=== PATIENT | male | born 1955 | race Hispanic/Latino ===

== ENCOUNTER 2020-01-16 21:42 | Emergency (ER) | payer OTHER ==
[2020-01-16 23:49] LABS: #Basophils 0.1 thou/uL (0.0-0.2); #Eosinphils 0.7 thou/uL (0.0-0.7); #Lymphocytes 1.3 thou/uL (1.20-3.40); #Monocytes 0.9 thou/uL (0.11-0.59); #Neutrophils 8.1 thou/uL (1.40-6.50); %Basophils 0.7 % (0.0-1.0); %Eosinophils 6.3 % (0.0-10.0); %Lymphocytes 11.6 % (21.0-51.0); %Neutrophils 73.5 % (42.0-75.0); Hemoglobin 10.1 g/dL (14.0-18.0); Mean Corpuscular HGB CONC 32.6 g/dL (32.0-36.0); Mean Corpuscular Hemoglobin 30.3 pg (27.0-31.0); Mean Corpuscular Volume 92.9 fL (78.0-98.0); Platelet Count 252 thou/uL (130-400); RBC Distribution Width 13.7 % (11.5-14.5); Red Blood Cell (RBC) Count 3.33 mill/uL (4.70-6.10); White Blood Cell (WBC) Count 11.1 thou/uL (4.8-10.8)
[2020-01-16] MEDS ORDERED: Mag-Al 1200 mg/1200 mg/30 ML UDCUP ONE (23:58)
[2020-01-16] MEDS ORDERED: Ondansetron ODT 8 MG TAB ONE (23:58)
[2020-01-16] MEDS ORDERED: Lidocaine Viscous Sol 2% 15 ml UD Cup ONE (23:58)
[2020-01-17 00:09] LABS: ALT (SGPT) Less than 7 U/L (8-55); AST (SGOT) 18 U/L (5-34); Albumin 2.7 g/dL (3.4-4.8); Alkaline Phosphatase 87 U/L (40-110); Anion Gap 14 mmol/L (10-20); BUN (Urea Nitrogen) 52 mg/dL (8.4-25.7); Bilirubin, Total 0.3 mg/dL (0.2-1.2); Calc. Creatinine Clearance 0 mL/min (70-130); Calcium 7.6 mg/dL (7.8-10.44); Carbon Dioxide 20 mmol/L (23-31); Chloride 110 mmol/L (98-107); Estimated GFR-MDRD 11; Glucose 90 mg/dL (80-115); Lipase 13 U/L (8-78); Protein, Total 5.7 g/dL (5.8-8.1); Sodium 141 mmol/L (136-145)
[2020-01-17 00:15] LABS: RBC/HPF 0-3 HPF (0-3); Squamous Epithelial 0-3 HPF (0-3)
[2020-01-17 00:17] LABS: Potassium 2.8 mmol/L (3.5-5.1)
[2020-01-17 00:23] LABS: Bacteria/HPF 1+ HPF (None Seen); Clarity Clear (Clear)
[2020-01-17 00:28] LABS: Bilirubin Negative (Negative); Blood, Urine Moderate (Negative); Glucose, Urine (Dipstick) 250 mg/dL (Negative); Leukocyte Negative (Negative); Nitrite Negative (Negative); Protein, Urine (Dipstick) > or equal to 300 mg/dL (Neg-Trace); Urobilinogen 0.2 mg/dL (Less than 2)
[2020-01-17] MEDS ORDERED: Potassium Chloride 20 MEQ TAB ONE (00:28)
== END 2020-01-17 02:39 ==
LOC: ERS 21:42
DX: R10.84 Generalized abdominal pain (principal); R11.2 Nausea with vomiting, unspecified; R19.7 Diarrhea, unspecified; E10.22 Type 1 diabetes mellitus with diabetic chronic kidney disease; E10.40 Type 1 diabetes mellitus with diabetic neuropathy, unspecified; I13.0 Hypertensive heart and chronic kidney disease with heart failure and stage 1 through stage 4 chronic kidney disease, or unspecified chronic kidney disease; I50.9 Heart failure, unspecified; N18.9 Chronic kidney disease, unspecified; Z79.899 Other long term (current) drug therapy; Z79.891 Long term (current) use of opiate analgesic; Z79.82 Long term (current) use of aspirin
CPT/HCPCS: 80053; 81003; 81015; 83690; 85025; 93005; Q0162

== ENCOUNTER 2020-02-01 13:27 | Inpatient (IN) | payer OTHER ==
[2020-02-01 14:16] LABS: #Eosinphils 0.4 thou/uL (0.0-0.7); #Lymphocytes 0.8 thou/uL (1.20-3.40); #Monocytes 0.6 thou/uL (0.11-0.59); #Neutrophils 10.4 thou/uL (1.40-6.50); %Basophils 0.3 % (0.0-1.0); %Lymphocytes 6.2 % (21.0-51.0); %Monocytes 4.6 % (0.0-10.0); Hemoglobin 9.5 g/dL (14.0-18.0); Mean Corpuscular Hemoglobin 30.2 pg (27.0-31.0); Mean Corpuscular Volume 91.7 fL (78.0-98.0); Mean Platelet Volume 7.1 fL (7.4-10.4); Platelet Count 335 thou/uL (130-400); RBC Distribution Width 13.5 % (11.5-14.5); Red Blood Cell (RBC) Count 3.15 mill/uL (4.70-6.10); White Blood Cell (WBC) Count 12.1 thou/uL (4.8-10.8)
[2020-02-01 14:26] LABS: Prothrombin Time 13.2 sec (12.0-14.7)
[2020-02-01 14:28] LABS: ALT (SGPT) Less than 7 U/L (8-55); AST (SGOT) 8 U/L (5-34); Albumin 2.3 g/dL (3.4-4.8); Alkaline Phosphatase 82 U/L (40-110); Anion Gap 12 mmol/L (10-20); BUN (Urea Nitrogen) 51 mg/dL (8.4-25.7); Bilirubin, Total 0.2 mg/dL (0.2-1.2); Calc. Creatinine Clearance 0 mL/min (70-130); Calcium 6.8 mg/dL (7.8-10.44); Carbon Dioxide 25 mmol/L (23-31); Chloride 107 mmol/L (98-107); Estimated GFR-MDRD 10; Globulin 2.6 g/dL (2.4-3.5); Glucose 251 mg/dL (80-115); Protein, Total 4.9 g/dL (5.8-8.1); Sodium 141 mmol/L (136-145)
[2020-02-01 14:34] LABS: Potassium 2.5 mmol/L (3.5-5.1)
[2020-02-01] MEDS ORDERED: Ondansetron PF 4 MG/2 ML Vial ONE (14:43)
[2020-02-01] MEDS ORDERED: Potassium Chloride 40 MEQ in Sodium Chloride 0.9% 250 ML 250 ML IVPB SCH (14:45)
[2020-02-01 15:21] LABS: CK (CPK) 108 U/L (30-200); Lipase 24 U/L (8-78)
--- NOTE | 2020-02-01 16:46 | CT ---
EXAM: ABDOMEN AND PELVIC CT SCAN WITHOUT IV CONTRAST: 02/01/20 HISTORY: Abdominal pain, prior bowel resection. FINDINGS: Three vessel coronary artery calcific disease. The liver, gallbladder, pancreas, and spleen are unrem arkable as visualized on this noncontrast study. Prominent renal artery calcifications with some chasity renal nonspecific fat stranding. No renal calculus or acute obstruction. Normal appearing appendix . The region of the rectum appears to have a thickened wall diffusely and circumferentially with some minimal perirectal nonspecific fat stranding. No overt adenopathy in the pelvis. No abscess or abnor mal fluid collection. There is some scattered subcutaneous fat stranding possibly related to some deg ree of anasarca. Multilevel lumbar spinal canal stenosis. IMPRESSION: 1. Abnormal wall thickening of the rectum with some perirectal nonspecific fat stranding. Possib ilities include that of rectal neoplasm and/or some acute nonspecific colitis involving the rectum re gion. 2. No CT evidence for acute appendicitis. 3. Other findings as above. POS: BONG
[2020-02-01] MEDS ORDERED: Dextrose 50% Abboject 50 ML SYRINGE SLOW IVP PRN (19:39)
[2020-02-01] MEDS ORDERED: HYDROcodone/Acetaminophen 5/325 mg Tablet PO PRN (19:39)
[2020-02-01] MEDS ORDERED: Ondansetron PF 4 MG/2 ML Vial IVP PRN (19:39)
[2020-02-01] MEDS ORDERED: Dextrose 5% in Water 1,000 ML IV PRN (19:39)
[2020-02-01] MEDS ORDERED: Acetaminophen 325 MG TAB PO PRN (19:39)
[2020-02-01 20:40] LABS: Iron Binding Capacity, Total 130 mcg/dL (261-462)
[2020-02-01] MEDS ORDERED: Potassium Chloride 20 MEQ/100 ML PREMIX BAG IVPB SCH (22:00)
[2020-02-01 22:51] LABS: Iron 45 ug/dL (65-175)
--- NOTE | 2020-02-01 22:55 | HP ---
PRIMARY CARE PHYSICIAN: None as the patient is from [facility]. SOURCE OF THE HISTORY: The patient, and history is reliable. 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 As per the patient, he has been on insulin at [facility]. The patient has been having loose, watery bowel movements for the last 3 weeks, but the patient is not sure if he is having any melenic stools or any bright red blood per rectum as the patient is legally blind. As per the patient, the patient has been having about 5-6 episodes of bowel movement for the last 3 weeks at [facility] associated with 2-3 bilious, non-bloody vomitings and the patient has significant poor oral intake for the last 3 weeks because of anorexia, has mild diffuse cramping in the lower abdomen, but otherwise no recent history or travel or fever. Subsequently because of persistence of symptoms, the patient was brought to the emergency department, where the patient had evaluation and the patient was noted to be having anemia with positive stool occult blood, but otherwise the patient has significant hypokalemia for which the patient has been admitted to internal medicine service. PAST MEDICAL HISTORY: Hypertension, diabetes mellitus, diabetic nephropathy, dyslipidemia, history of CT in the past, glaucoma, history of carcinoma of the stomach, status post resection, stage 4 chronic kidney disease. PAST SURGICAL HISTORY: Resection of the stomach for carcinoma of the stomach and amputation of the great toe and second toe of the right foot, right arm surgery. ALLERGIES: THE PATIENT IS NOT ALLERGIC TO ANY KNOWN MEDICATION. CURRENT MEDICATIONS: At the [facility]: Aspirin 81 mg oral once a day, atorvastatin 40 mg orally once a day, brimonidine and dorzolamide ophthalmic drops, calcitriol 0.25 mcg orally 2 times a day, coreg 12.5 mg orally twice a day, clotrimazole topical 1% two times a day, cyanocobalamin injection 1000 mcg every 4 weeks, Colace 100 mg orally twice a day, Cymbalta 30 mg orally once a day, ferrous sulfate 325 mg orally twice a day, Lasix 40 mg orally twice a day, hydrocortisone topical 1% two times a day, Imdur 30 mg orally once a day, latanoprost ophthalmic drops, regular insulin 3 times as day, calcium carbonate 2 tablets 3 times a day, omeprazole 20 mg orally once a day, Sevelamer 800 mg 2 tablets 3 times a day, timolol ophthalmic drops. FAMILY HISTORY: Significant for hypertension, diabetes mellitus. SOCIAL HISTORY: The patient is in [facility] for the last 4 years, otherwise currently the patient denies any complaints of tobacco abuse, alcohol abuse or recreational drug abuse. REVIEW OF SYSTEMS: As mentioned in the history of present illness. Apart from the 14-point review of systems have been conducted and noncontributory. PHYSICAL EXAMINATION: GENERAL: Elderly male patient, lying on the stretcher comfortably, not appears to be in any cardiopulmonary distress. Mucous membranes are pale and dry. Acyanotic. Anicteric. No cyanosis, clubbing, pedal edema, or lymphadenopathy. VITAL SIGNS: Temperature 98.4, pulse 84, respirations 18, blood pressure 150/ 78. HEAD: Atraumatic and normocephalic. ENT: Neck is supple. No jugular venous distention. No thyromegaly or carotid bruit. EYES: Extraocular movements are intact. Pupils are equal and reactive to light bilaterally, but the patient has significantly decreased visual acuity in both eyes. CHEST: Bilaterally symmetrical. Trachea is midline. Air entry is good bilaterally with clear vesicular breath sounds. CARDIOVASCULAR: Normal intensity of S1 and S2 without S3. No murmurs or rub appreciated. ABDOMEN: Soft without any distension with minimal tenderness involving the suprapubic region and the left lower quadrant of the abdomen without any rebound. No organomegaly. Normoactive bowel sounds. ELECTRONIC TESTER: The patient is alert, awake, and oriented to time, place, and person, but the patient is legally blind. The patient has spontaneous movement of both upper and lower extremities. EXTREMITIES: No edema or calf asymmetry and the patient has amputation of the right great toe and second toe. LABORATORY DATA: WBC 12.1, hemoglobin 9.5, hematocrit 28.9, platelets 335, PT 13.2, INR 1.0, PTT 30, sodium 141, potassium 2.5, chloride 107, bicarb 25, anion gap 12, BUN 51, creatinine 5.6, glucose 251, lactic acid 1.3, calcium 6.8, magnesium 1.9 , total bilirubin 0.2, AST 8, ALT less than 7, alkaline phosphatase 82, CK 108, total protein 4.9, albumin 2.3, globulin 2.6, lipase 24. CT scan of the abdomen and pelvis reveal abnormal wall thickening of the rectum with some perirectal nonspecific fat stranding. Possibilities including that of rectal neoplasm and or some acute nonspecific colitis involving the rectum region. No CT evidence of acute appendicitis. ASSESSMENT: 1. Severe hypokalemia. 2. Colitis with rectal wall thickening. 3. Stage 4 chronic kidney disease. 4. Moderate protein-calorie malnutrition. 5. Anemia with positive stool occult blood. 6. Essential hypertension with controlled blood pressure. 7. Diabetes mellitus with diabetic nephropathy. 8. Dyslipidemia. 9. History of myocardial infarction in the past. 10. History of carcinoma of the stomach, status post resection in the past. 11. Bilateral glaucoma with subsequent legal blindness. PLAN: The patient has been having 3 week history of diarrhea with vomiting and CT scan is suggestive of rectal wall thickening. Probably related to infectious etiology, but neoplasm could not be excluded at this point of time. The patient had a normal colonoscopy about 5 years ago which revealed only polyps. We will keep the patient n.p.o. except medications for now. Otherwise, hydrate the patient with normal saline at 75 mL per hour. Obtain stool for ova, parasites, culture and WBC. Keep the patient on intravenous Cefepime and Flagyl empirically. Monitor hemoglobin and hematocrit tomorrow. Keep the patient on IV Protonix 40 mg twice a day for now. The patient has received 40 mEq of intravenous potassium chloride in the emergency department and we will give 20 more mEq of intravenous potassium and check serum potassium in the morning. Hold diuretics for now as the patient clinically appears dehydrated and we will keep the patient on normal saline at 75 mL/hr and assess the fluid balance in the morning. Obtain bilateral kidney ultrasound. Await iron studies. Coreg 6.25 mg orally twice a day and keep the patient on IV hydralazine 10 mg every 6 hours as needed for systolic pressure of more than 160 mmHg. Currently the patient is not on any long-acting insulin at [facility] and the patient is only on Novolin insulin 3 times a day. As the patient is going to be n.p.o., we will keep the patient on Lispro Insulin sliding scale coverage for now. Continue statin and Cymbalta for now. The patient has been explained about the current plan of management which he had understood and agreed for. Job ID: [id number] MTDD
[2020-02-01] MEDS: Cefepime 1 GM in Sodium Chloride 0.9% 100 ML IVPB SCH (23:41)
[2020-02-01] MEDS: Atorvastatin Calcium 20 MG TAB PO SCH (23:42)
[2020-02-01] MEDS: Pantoprazole 40 MG VIAL IVP SCH (23:42)
[2020-02-01] MEDS: Sodium Chloride 0.9% 1,000 ML IV SCH (23:43)
[2020-02-02] MEDS: HumaLOG 300 UNITS/3 ML VIAL SC PRN (02:15)
[2020-02-02] MEDS: metroNIDAZOLE 500 MG in Premix Bag 1 BAG IVPB SCH ×5 (02:16→22:06)
[2020-02-02] MEDS: hydrALAZINE 20 MG/ML VIAL SLOW IVP PRN ×3 (02:17→17:03)
[2020-02-02 05:20] LABS: Iron 62 ug/dL (65-175); Iron Binding Capacity, Total 138 mcg/dL (261-462)
[2020-02-02] MEDS: Carvedilol 6.25 MG TAB PO SCH ×2 (09:07→17:02)
[2020-02-02] MEDS: Cefepime 1 GM in Sodium Chloride 0.9% 100 ML IVPB SCH ×2 (09:07→21:57)
[2020-02-02] MEDS: Sodium Chloride 0.9% 1,000 ML IV SCH (09:07)
[2020-02-02] MEDS: Pantoprazole 40 MG VIAL IVP SCH ×2 (09:07→22:01)
[2020-02-02 17:09] LABS: SARS-CoV-2 MS2 Positive; SARS-CoV-2 N Gene Negative; SARS-CoV-2 S Gene Negative; SARS-CoV-2 orf1ab Negative
--- NOTE | 2020-02-02 17:57 | PDOC.HOSPP ---
- Subjective Encounter Date: 02/02/20 Encounter Time: 17:50 Subjective: f/u for gastroenteritis/colitis treated with Cefepime/Flagyl with CT abd showing colonic wall thickening. Ruled out for COVID-19 today. - Objective Vital Signs & Weight: Vital Signs (12 hours) Temp Pulse Resp BP Pulse Ox 02/02/20 17:13 77 174/78 H 02/02/20 17:03 74 02/02/20 15:09 96.9 F L 74 18 177/83 H 99 02/02/20 12:23 98.1 F 84 18 116/56 L 99 02/02/20 09:16 73 02/02/20 08:00 97.8 F 80 20 182/86 H 99 Weight Weight 171 lb 9.6 oz I&O: 02/01/20 02/02/20 02/03/20 06:59 06:59 06:59 Intake Total 768 1220 Output Total 100 1 Balance 668 1219 Result Diagrams: 02/01/20 13:50 02/01/20 13:50 Additional Labs: Accuchecks 02/02/20 02/02/20 02/02/20 17:11 05:37 00:19 POC Glucose 182 H 251 H 195 H Radiology Reviewed by me: Yes (CT abd - perirectal wall edema) EKG Reviewed by me: Yes (Tele - SR) Hospitalist ROS - Medication Medications: Active Medications Generic Name Dose Route Start Last Admin Trade Name Freq PRN Reason Stop Dose Admin Atorvastatin Calcium 20 mg 02/01/20 21:00 02/01/20 23:42 Lipitor PO 20 mg HS ROOSEVELT Administration Carvedilol 6.25 mg 02/02/20 08:00 02/02/20 17:02 Coreg PO 6.25 mg BID-WM ROOSEVELT Administration Duloxetine HCl 20 mg 02/02/20 09:00 02/02/20 09:07 Cymbalta PO 20 mg DAILY ROOSEVELT Administration Hydralazine HCl 10 mg 02/01/20 19:56 02/02/20 17:03 Apresoline SLOW IVP 10 mg Q6H PRN Administration SBP GREATER THAN 160 Sodium Chloride 1,000 mls @ 75 mls/hr 02/01/20 19:45 02/02/20 09:07 Normal Saline 0.9% IV 1,000 mls .[id number] ROOSEVELT Administration Metronidazole 500 mg/ Device 100 mls @ 100 mls/hr 02/01/20 22:00 02/02/20 14: 52 IVPB 100 mls Q8HR ROOSEVELT Administration Cefepime HCl 1 gm/ Sodium 100 mls @ 200 mls/hr 02/01/20 21:00 02/02/20 09:07 Chloride IVPB 100 mls Q12HR ROOSEVELT Administration Pantoprazole Sodium 40 mg 02/01/20 21:00 02/02/20 09:07 Protonix IVP 40 mg Q12HR ROOSEVELT Administration - Exam General Appearance: NAD, awake alert Eye: PERRL, anicteric sclera ENT: normocephalic atraumatic, no oropharyngeal lesions Neck: supple, symmetric, no JVD, no thyromegaly Heart: RRR, no gallops, no rubs, normal peripheral pulses Heart - other findings: S1, S2 Respiratory: CTAB, no wheezes, no rales, no ronchi, normal chest expansion Gastrointestinal: soft, non-distended, normal bowel sounds, no palpable masses Gastrointestinal - other findings: mild TTP LLQ Extremities: no cyanosis, no clubbing, no edema Skin: normal turgor Neurological: cranial nerve grossly intact, no new deficit Musculoskeletal: normal tone, generalized weakness Psychiatric: normal affect, A&O x 3 Hosp A/P (1) Colitis presumed infectious Code(s): K52.9 - NONINFECTIVE GASTROENTERITIS AND COLITIS, UNSPECIFIED Status : Acute Plan: Continue Cefepime/Flagyl, add C. diff toxin/antigen, enteric precautions, continue IVF's, add Zithromax 500mg po daily for Campylobacter + (2) Hypokalemia Code(s): E87.6 - HYPOKALEMIA Status: Chronic Plan: KCL supplementation, serial K+ monitoring (3) CKD (chronic kidney disease), stage IV Code(s): N18.4 - CHRONIC KIDNEY DISEASE, STAGE 4 (SEVERE) Status: Chronic Plan: Continue IVF's, avoid nephrotoxic meds and limit contrast exposure (4) DM (diabetes mellitus) type II controlled, neurological manifestation Code(s): E11.49 - TYPE 2 DIABETES W OTH DIABETIC NEUROLOGICAL COMPLICATION Status: Chronic Plan: ISS, serial accuchecks, ADA (5) Anemia in CKD (chronic kidney disease) Code(s): N18.9 - CHRONIC KIDNEY DISEASE, UNSPECIFIED; D63.1 - ANEMIA IN CHRONIC KIDNEY DISEASE Status: Chronic Plan: Serial H/H, Iron-deficiency component - Plan continue antibiotics, rn social work, DVT proph w/SCDs Stable currently Continue IVF's NS Continue Cefepime/Flagyl Check C. diff toxin/antigen Enteric precautions Add Zithromax 500mg po daily for Campylobacter + Start Clear liquids Consult GI service AM lab: CMP, CBC, PO3
[2020-02-02] MEDS ORDERED: Potassium Chloride 20 MEQ TAB PO SCH (18:00)
[2020-02-02] MEDS ORDERED: Azithromycin 250 MG TAB PO SCH ×2 (18:45→20:00)
--- NOTE | 2020-02-02 19:36 | ULT ---
BILATERAL RENAL ULTRASOUND COMPLETE: History: Renal failure. Comparison: Abdomen/pelvic CT scan, 02-01-2020 FINDINGS: The right kidney measures 9.6 x 5.3 x 5.7 cm. The left kidney measures 10.8 x 5.8 x 4.7 cm. No renal hydronephrosis. No perinephric process. Urinary bladder region is unremarkable. There are some minima l echogenic foci in both kidneys but these may well be related to renal vascular calcification. IMPRESSION: No renal hydronephrosis or other acute process. POS: RRE
[2020-02-02] MEDS: Timolol 0.5% Ophth Soln 5 ml Bottle L EYE SCH (21:59)
[2020-02-02] MEDS: Atorvastatin Calcium 20 MG TAB PO SCH (22:01)
[2020-02-02] MEDS: Ferrous Sulfate 325 MG TAB PO SCH (22:01)
[2020-02-02] MEDS: Dorzolamide HCl 2% Ophth Soln 10 ml Bottle EA EYE SCH (22:03)
[2020-02-02] MEDS: Latanoprost 0.005% Ophth Soln 2.5 ml Bottle EA EYE SCH (22:06)
[2020-02-03 04:12] LABS: Phosphorus 3.9 mg/dL (2.3-4.7)
[2020-02-03] MEDS: metroNIDAZOLE 500 MG in Premix Bag 1 BAG IVPB SCH ×4 (04:13→20:22)
[2020-02-03 04:14] LABS: ALT (SGPT) Less than 7 U/L (8-55); AST (SGOT) 7 U/L (5-34); Albumin 2.1 g/dL (3.4-4.8); Alkaline Phosphatase 67 U/L (40-110); Anion Gap 11 mmol/L (10-20); BUN (Urea Nitrogen) 49 mg/dL (8.4-25.7); Bilirubin, Total 0.3 mg/dL (0.2-1.2); Calc. Creatinine Clearance 15 mL/min (70-130); Calcium 6.9 mg/dL (7.8-10.44); Carbon Dioxide 21 mmol/L (23-31); Chloride 112 mmol/L (98-107); Estimated GFR-MDRD 11; Globulin 2.5 g/dL (2.4-3.5); Glucose 250 mg/dL (80-115); Potassium 3.3 mmol/L (3.5-5.1); Protein, Total 4.6 g/dL (5.8-8.1); Sodium 141 mmol/L (136-145)
[2020-02-03] MEDS: Sodium Chloride 0.9% 1,000 ML IV SCH ×3 (04:14→20:30)
[2020-02-03] MEDS: HumaLOG 300 UNITS/3 ML VIAL SC PRN ×2 (05:55→11:48)
[2020-02-03 06:10] LABS: Hemoglobin 9.8 g/dL (14.0-18.0); Mean Corpuscular HGB CONC 32.4 g/dL (32.0-36.0); Mean Corpuscular Volume 92.8 fL (78.0-98.0); Mean Platelet Volume 7.3 fL (7.4-10.4); Platelet Count 322 thou/uL (130-400); Red Blood Cell (RBC) Count 3.25 mill/uL (4.70-6.10); White Blood Cell (WBC) Count 9.5 thou/uL (4.8-10.8)
[2020-02-03 06:58] LABS: Band 10 % (5-11); Eosinophils 2 % (0-10); Lymphocytes 11 % (21-51); MDiff Complete? YES; Monocytes 5 % (0-10); Neutrophil 72 % (42-75)
[2020-02-03] MEDS: Carvedilol 6.25 MG TAB PO SCH ×2 (08:47→17:06)
[2020-02-03] MEDS: Potassium Chloride 20 MEQ TAB PO SCH ×2 (08:47→17:06)
[2020-02-03] MEDS: Calcitriol 0.25 MCG CAP PO SCH (08:48)
[2020-02-03] MEDS: DULoxetine 30 MG CAP PO SCH (08:48)
[2020-02-03] MEDS: Pantoprazole 40 MG VIAL IVP SCH ×2 (08:49→20:23)
[2020-02-03] MEDS: Cefepime 1 GM in Sodium Chloride 0.9% 100 ML IVPB SCH ×2 (08:49→21:38)
[2020-02-03] MEDS: Ferrous Sulfate 325 MG TAB PO SCH ×2 (08:49→20:22)
[2020-02-03] MEDS: Dorzolamide HCl 2% Ophth Soln 10 ml Bottle EA EYE SCH ×3 (08:50→20:23)
[2020-02-03] MEDS: Timolol 0.5% Ophth Soln 5 ml Bottle L EYE SCH ×2 (08:51→20:23)
[2020-02-03 13:02] VITALS: BMI 26.6
[2020-02-03] MEDS ORDERED: GoLYTELY 4,000 ml Bottle PO SCH (14:15)
--- NOTE | 2020-02-03 16:00 | PDOC.HOSPP ---
- Subjective Encounter Date: 02/03/20 Encounter Time: 16:00 Subjective: f/u for colitis presumed infectious on Cefepime/Flagyl/Zithromax. - Objective Vital Signs & Weight: Vital Signs (12 hours) Temp Pulse Resp BP BP Pulse Ox 02/03/20 15:35 98.3 F 75 12 151/75 H 99 02/03/20 11:46 97.9 F 90 18 153/72 H 99 02/03/20 07:39 98.4 F 69 12 147/69 H 97 Weight Admit Weight 171 lb 9.6 oz Weight 175 lb 8 oz I&O: 02/02/20 02/03/20 02/04/20 06:59 06:59 06:59 Intake Total 768 2694 Output Total 100 251 Balance 668 3433 Result Diagrams: 02/03/20 03:34 02/03/20 03:34 Additional Labs: Accuchecks 02/03/20 02/03/20 02/03/20 10:59 05:41 00:49 POC Glucose 223 H 229 H 281 H 02/02/20 02/02/20 17:11 10:54 POC Glucose 182 H 225 H Microbiology 02/02/20 23:42 Stool C. difficile GDH Antigen & Toxins - Final 02/01/20 18:10 Stool - Pending Stool Occult Blood (ANGELICA) - Final 02/01/20 11:10 Rectum - Formed Stool Lactoferrin - Final 02/01/20 11:10 Rectum - Formed Campylobacter Antigen Assay - Final 02/01/20 11:10 Rectum - Formed Shiga Toxin Test - Final 02/01/20 11:10 Rectum - Formed Stool Culture - Preliminary Laboratory Tests 02/01/20 02/01/20 02/01/20 13:50 13:50 21:25 WBC 12.1 H Hgb 9.5 L Neutrophils % 86.0 H Neutrophils % (Manual) Potassium 2.5 L* Phosphorus COVID-19 PCR Not Detected 02/03/20 02/03/20 03:34 03:34 WBC Hgb Neutrophils % Neutrophils % (Manual) 72 Potassium Phosphorus 3.9 COVID-19 PCR Radiology Reviewed by me: Yes (Renal sono - no hydronephrosis or obstruction) EKG Reviewed by me: Yes (Tele - SR) Hospitalist ROS - Medication Medications: Active Medications Generic Name Dose Route Start Last Admin Trade Name Freq PRN Reason Stop Dose Admin Atorvastatin Calcium 20 mg 02/01/20 21:00 02/02/20 22:01 Lipitor PO 20 mg HS ROOSEVELT Administration Calcitriol 0.25 mcg 02/03/20 09:00 02/03/20 08:48 Rocaltrol PO 0.25 mcg DAILY ROOSEVLET Administration Carvedilol 6.25 mg 02/02/20 08:00 02/03/20 08:47 Coreg PO 6.25 mg BID-WM ROOSEVELT Administration Dorzolamide HCl 1 drop 02/02/20 21:00 02/03/20 15:40 Trusopt 2% Ophth Soln EA EYE 1 drop TID ROOSEVELT Administration Duloxetine HCl 30 mg 02/03/20 09:00 02/03/20 08:48 Cymbalta PO 30 mg DAILY ROOSEVELT Administration Ferrous Sulfate 325 mg 02/02/20 21:00 02/03/20 08:49 Feosol PO 325 mg BID ROOSEVELT Administration Hydralazine HCl 10 mg 02/01/20 19:56 02/02/20 17:03 Apresoline SLOW IVP 10 mg Q6H PRN Administration SBP GREATER THAN 160 Sodium Chloride 1,000 mls @ 75 mls/hr 02/01/20 19:45 02/03/20 05:55 Normal Saline 0.9% IV 1,000 mls .[id number] ROOSEVELT Administration Cefepime HCl 1 gm/ Sodium 100 mls @ 200 mls/hr 02/01/20 21:00 02/03/20 08:49 Chloride IVPB 100 mls Q12HR ROOSEVELT Administration Metronidazole 500 mg/ Device 100 mls @ 100 mls/hr 02/03/20 05:00 02/03/20 12: 22 IVPB 100 mls 0500,1300,2100 ROOSEVELT Administration Insulin Human Lispro 0 units 02/01/20 19:39 02/03/20 11:48 Humalog SC 4 unit .MODERATE SLIDING SC PRN Administration Moderate Correctional Scale Latanoprost 0 drop 02/02/20 21:00 02/02/20 22:06 Xalatan 0.005% Ophth Soln EA EYE 1 drop HS ROOSEVELT Administration Pantoprazole Sodium 40 mg 02/01/20 21:00 02/03/20 08:49 Protonix IVP 40 mg Q12HR ROOSEVELT Administration Potassium Chloride 40 meq 02/03/20 08:00 02/03/20 08:47 K-Dur PO 40 meq BID-WM ROOSEVELT Administration Timolol Maleate 1 drop 02/02/20 21:00 02/03/20 08:51 Timoptic 0.5% Ophth Soln L EYE 1 drop BID ROOSEVELT Administration - Exam General Appearance: NAD, awake alert Eye: PERRL, anicteric sclera ENT: normocephalic atraumatic, no oropharyngeal lesions Neck: supple, symmetric, no JVD, no thyromegaly, no lymphadenopathy Heart: RRR, no murmur, no gallops, no rubs, normal peripheral pulses Heart - other findings: S1, S2 Respiratory: CTAB, no wheezes, no rales, no ronchi, normal chest expansion, no tachypnea Gastrointestinal: soft, non-tender, non-distended, normal bowel sounds, no palpable masses Extremities: no cyanosis, no clubbing, no edema Skin: normal turgor, no lesions Neurological: cranial nerve grossly intact, no new deficit Musculoskeletal: normal tone, generalized weakness Psychiatric: normal affect, A&O x 3 Hosp A/P (1) Colitis presumed infectious Code(s): K52.9 - NONINFECTIVE GASTROENTERITIS AND COLITIS, UNSPECIFIED Status : Acute Plan: No dominant organism identified, Campylobacter + on current Zithromax, continue Cefepime/Flagyl empirically, plan for colonoscopy per GI (2) Hypokalemia Code(s): E87.6 - HYPOKALEMIA Status: Chronic Plan: Improving, continue KCL supplementation, serial monitoring (3) CKD (chronic kidney disease), stage IV Code(s): N18.4 - CHRONIC KIDNEY DISEASE, STAGE 4 (SEVERE) Status: Chronic Plan: Continue IVF's (4) DM (diabetes mellitus) type II controlled, neurological manifestation Code(s): E11.49 - TYPE 2 DIABETES W OTH DIABETIC NEUROLOGICAL COMPLICATION Status: Chronic (5) Anemia in CKD (chronic kidney disease) Code(s): N18.9 - CHRONIC KIDNEY DISEASE, UNSPECIFIED; D63.1 - ANEMIA IN CHRONIC KIDNEY DISEASE Status: Chronic - Plan continue antibiotics, PT/OT, transition social worker, out of bed/ambulate, DVT proph w/ SCDs Stable currently Continue IVF's NS Continue Cefepime/Flagyl Enteric precautions d/c'd Continue Zithromax 500mg po daily for Campylobacter + Clear liquids Plan for colonoscopy in am AM lab: BMP, CBC
--- NOTE | 2020-02-03 17:37 | CON ---
DATE OF CONSULTATION: 02/03/2020 REQUESTING PHYSICIAN: Dr. Larson. REASON FOR CONSULTATION: Anemia, possible colitis. HISTORY OF PRESENT ILLNESS: Jj Goode is a 65-year-old man, a group home inmate for the last 4 years, who was admitted here yesterday. He has a history significant for diabetes with nephropathy and chronic kidney disease, but is not on dialysis. He has had a prior DE. 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 It is difficult to ascertain exactly what the nature of this was. He said that this was found on diagnostic laparoscopy and was resected with no chemotherapy needed. He sometimes says it was in the lower intestine, other times that it was in the small intestine, and other times that it was in the stomach. At any rate, he evidently had not had any recurrence of this since then. He says his last colonoscopy was about 5 years ago and had some colon polyps removed. He has been having new symptoms for about the past 3 weeks. He says he has been having urgent loose watery diarrhea. He is legally blind, so he cannot really tell if there has been blood in it or not. Per nursing staff, he has had a couple of bloody stools here. Along with the diarrhea, he has been having some loss of appetite as well as some lower abdominal cramping pain, particularly in the left lower quadrant, which is intermittent. He has had a few episodes of vomiting. Symptoms progressed and prompted his presentation here. On evaluation, he is anemic with hemoglobin 9.8 and mixed iron studies. He was negative for COVID. He has been hemodynamically stable. Stool studies are positive for Campylobacter antigen with elevated fecal lactoferrin and positive stool occult blood. The stool cultures are otherwise negative. The stool was too formed to test for Clostridium difficile. A CT scan of the abdomen and pelvis demonstrated diffuse rectal thickening with some perirectal stranding and this was thought to represent either nonspecific colitis or possibly neoplastic process. There is no pelvic lymphadenopathy. REVIEW OF SYSTEMS: Full review of systems including constitutional, head, eyes, ears, nose, throat, GI, , cardiovascular, respiratory, musculoskeletal, neurologic systems is negative except as noted in the HPI. PAST MEDICAL HISTORY: Diabetes with nephropathy, hypertension, hyperlipidemia, chronic kidney disease, myocardial infarction, glaucoma with legal blindness, some kind of abdominal cancer, status post resection many years ago. ALLERGIES: NO KNOWN DRUG ALLERGIES. OUTPATIENT MEDICATIONS: 1. Aspirin 81 mg daily. 2. Atorvastatin. 3. Brimonidine eye drops. 4. Dorzolamide an eye drops. 5. Calcitriol. 6. Coreg. 7. Vitamin B12 injection 1000 mcg every 4 weeks. 8. Colace 100 mg twice daily. 9. Cymbalta. 10. Ferrous sulfate 325 mg twice daily. 11. Lasix 40 mg twice daily. 12. Imdur. 13. Insulin. 14. Calcium carbonate. 15. Omeprazole. 16. Renvela. FAMILY HISTORY: Negative for GI malignancies. Significant for hypertension and diabetes. SOCIAL HISTORY: The patient has been in group home for the last 4 years. No tobacco, alcohol, or drug use. PHYSICAL EXAMINATION: VITAL SIGNS: Temperature 97.9, pulse 90, blood pressure 153/72, 99% oxygen saturation on room air. GENERAL: Chronically ill-appearing, but nontoxic 65-year-old man sitting up in bed comfortably, in no distress. EYES: He is legally blind. No scleral icterus. Extraocular movements intact. SKIN: He is a bit pale. No jaundice. No rashes were palpable. ENT: Mucous membranes moist. No oral lesions. LYMPH: No submandibular or supraclavicular lymphadenopathy. THYROID: Nontender to palpation. HEART: Regular rate and rhythm. LUNGS: Clear to auscultation bilaterally. ABDOMEN: Protuberant. Bowel sounds present. Soft. Some mild tenderness to palpation in the left lower quadrant but no guarding, rebound, tenderness. Nontender everywhere else. EXTREMITIES: No peripheral edema. VESSELS: Radial pulses 2+ bilaterally. NEUROLOGIC: Cranial nerves 2 through 12 intact bilaterally. No focal deficits. LABORATORY DATA: Hemoglobin 9.8, MCV 92.8, WBC is 9.5, platelets 322. Sodium 141, potassium 3.3, BUN 49, creatinine 5.26, glucose 2.23. INR 1.0. Lipase 24, albumin 2.1, total bilirubin 0.3, alkaline phosphatase 67. AST 7, ALT less than 7. Ferritin is 413, iron 62, TIBC 138. COVID PCR is negative. Stool studies show positive Campylobacter antigen, elevated fecal lactoferrin, positive FOBT. Stool culture shows normal enteric kolton. Stools too formed for C difficile testing. IMAGING STUDIES: Renal ultrasound is normal. 02/01/2020 CT abdomen and pelvis demonstrates diffuse rectal thickening which is circumferential with some perirectal stranding. This is thought to represent nonspecific colitis versus possibly neoplastic process. There is no pelvic lymphadenopathy. Normal appearing liver, gallbladder, pancreas and spleen. ASSESSMENT AND PLAN: 1. Chronic diarrhea for 3 weeks. 2. Rectal bleeding. 3. Heme-positive stool. 4. Anemia, normocytic, but on iron supplementation, suggestive of chronic iron deficiency. Iron studies are currently mixed. 5. Nausea and vomiting, intermittent. 6. Prior history of some kind of gastric or intestinal cancer, unclear, status post resection many years ago. I had a long discussion with the patient about his presentation. He does have a positive Campylobacter antigen testing in the stool, so this is a potential explanation for the more recent diarrhea. However, the CT finding of circumferential rectal thickening is concerning, particularly in the context of what appears to be iron deficiency anemia and his prior history of some kind of enhanced intestinal cancer resected. I agree with antibiotics including azithromycin at this time, as well as supportive care. But I would recommend being more aggressive in pursuing endoscopic workup, particularly lower endoscopy to further evaluate the rectal mucosa and rule out any recurrence of neoplasm. If the colonoscopy is negative, will also perform EGD. The patient understands and agrees with the plan. We will plan on the procedure tomorrow. Thank you for the consultation. Please call anytime with questions or concerns. Job ID: [id number]
[2020-02-03] MEDS: Azithromycin 250 MG TAB PO SCH (20:22)
[2020-02-03] MEDS: Atorvastatin Calcium 20 MG TAB PO SCH (20:22)
[2020-02-03] MEDS: Latanoprost 0.005% Ophth Soln 2.5 ml Bottle EA EYE SCH (20:23)
[2020-02-04] MEDS: metroNIDAZOLE 500 MG in Premix Bag 1 BAG IVPB SCH ×3 (04:37→20:50)
[2020-02-04 05:00] LABS: Band 3 % (5-11); Eosinophils 4 % (0-10); Hemoglobin 9.8 g/dL (14.0-18.0); Lymphocytes 10 % (21-51); MDiff Complete? YES; Mean Corpuscular HGB CONC 31.7 g/dL (32.0-36.0); Mean Corpuscular Hemoglobin 29.6 pg (27.0-31.0); Mean Corpuscular Volume 93.4 fL (78.0-98.0); Mean Platelet Volume 7.1 fL (7.4-10.4); Monocytes 2 % (0-10); Neutrophil 81 % (42-75); Platelet Count 302 thou/uL (130-400); Red Blood Cell (RBC) Count 3.31 mill/uL (4.70-6.10); White Blood Cell (WBC) Count 9.5 thou/uL (4.8-10.8)
[2020-02-04 05:05] LABS: Anion Gap 10 mmol/L (10-20); BUN (Urea Nitrogen) 41 mg/dL (8.4-25.7); Calc. Creatinine Clearance 17 mL/min (70-130); Calcium 6.9 mg/dL (7.8-10.44); Carbon Dioxide 21 mmol/L (23-31); Chloride 112 mmol/L (98-107); Estimated GFR-MDRD 12; Glucose 237 mg/dL (80-115); Potassium 3.8 mmol/L (3.5-5.1); Sodium 139 mmol/L (136-145)
[2020-02-04] MEDS: Carvedilol 6.25 MG TAB PO SCH ×2 (06:21→17:10)
[2020-02-04] MEDS: Calcitriol 0.25 MCG CAP PO SCH (08:47)
[2020-02-04] MEDS: Potassium Chloride 20 MEQ TAB PO SCH ×2 (08:47→17:10)
[2020-02-04] MEDS: DULoxetine 30 MG CAP PO SCH (08:47)
[2020-02-04] MEDS: Ferrous Sulfate 325 MG TAB PO SCH ×2 (08:48→20:52)
[2020-02-04] MEDS: Cefepime 1 GM in Sodium Chloride 0.9% 100 ML IVPB SCH ×2 (08:58→21:59)
[2020-02-04] MEDS: Dorzolamide HCl 2% Ophth Soln 10 ml Bottle EA EYE SCH ×3 (08:59→20:52)
[2020-02-04] MEDS: Pantoprazole 40 MG VIAL IVP SCH ×2 (09:00→20:52)
[2020-02-04] MEDS: Timolol 0.5% Ophth Soln 5 ml Bottle L EYE SCH ×2 (09:55→20:52)
[2020-02-04] MEDS ORDERED: Lidocaine 1% PF 5 ML VIAL ONE (10:34)
[2020-02-04] MEDS ORDERED: PROPOFOL 200 MG/20 ML VIAL ONE (10:34)
--- NOTE | 2020-02-04 13:25 | PDOC.HOSPP ---
- Subjective Encounter Date: 02/04/20 Encounter Time: 13:15 Subjective: f/u for colitis presumed infectious tx with Cefepime/Flagyl/Zithromax. s/p colonoscopy today with final pathology/bx results pending. - Objective Vital Signs & Weight: Vital Signs (12 hours) Temp Pulse Resp BP BP Pulse Ox 02/04/20 09:55 78 02/04/20 08:00 97.4 F L 78 16 163/78 H 91 L 02/04/20 07:34 97.4 F L 78 16 163/78 H 98 02/04/20 06:21 171/82 H 02/04/20 04:00 97.9 F 81 16 146/74 H 99 Weight Admit Weight 171 lb 9.6 oz Weight 175 lb 8 oz I&O: 02/03/20 02/04/20 02/05/20 06:59 06:59 06:59 Intake Total 2694 2580 0 Output Total 251 Balance 2443 2580 0 Result Diagrams: 02/04/20 04:28 02/04/20 04:28 Additional Labs: Accuchecks 02/04/20 02/03/20 02/03/20 01:01 20:47 17:10 POC Glucose 227 H 185 H 144 H Microbiology 02/02/20 23:42 Stool C. difficile GDH Antigen & Toxins - Final 02/01/20 18:10 Stool - Pending Stool Occult Blood (ANGELICA) - Final 02/01/20 11:10 Rectum - Formed Stool Lactoferrin - Final 02/01/20 11:10 Rectum - Formed Campylobacter Antigen Assay - Final 02/01/20 11:10 Rectum - Formed Shiga Toxin Test - Final 02/01/20 11:10 Rectum - Formed Stool Culture - Preliminary Laboratory Tests 02/01/20 02/01/20 02/01/20 13:50 13:50 21:25 WBC 12.1 H Hgb 9.5 L Neutrophils % 86.0 H Neutrophils % (Manual) Potassium 2.5 L* Phosphorus COVID-19 PCR Not Detected 02/03/20 02/03/20 03:34 03:34 WBC Hgb Neutrophils % Neutrophils % (Manual) 72 Potassium Phosphorus 3.9 COVID-19 PCR Hospitalist ROS - Medication Medications: Active Medications Generic Name Dose Route Start Last Admin Trade Name Freq PRN Reason Stop Dose Admin Atorvastatin Calcium 20 mg 02/01/20 21:00 02/03/20 20:22 Lipitor PO 20 mg HS ROOSEVELT Administration Azithromycin 500 mg 02/03/20 21:00 02/03/20 20:22 Zithromax PO 02/05/20 21:01 500 mg 2100 ROOSEVELT Administration Calcitriol 0.25 mcg 02/03/20 09:00 02/04/20 08:47 Rocaltrol PO Not Given DAILY [facility] Carvedilol 6.25 mg 02/02/20 08:00 02/04/20 06:21 Coreg PO 6.25 mg BID-WM ROOSEVELT Administration Dorzolamide HCl 1 drop 02/02/20 21:00 02/04/20 08:59 Trusopt 2% Ophth Soln EA EYE 1 drop TID ROOSEVELT Administration Duloxetine HCl 30 mg 02/03/20 09:00 02/04/20 08:47 Cymbalta PO Not Given DAILY [facility] Ferrous Sulfate 325 mg 02/02/20 21:00 02/04/20 08:48 Feosol PO Not Given BID [facility] Hydralazine HCl 10 mg 02/01/20 19:56 02/02/20 17:03 Apresoline SLOW IVP 10 mg Q6H PRN Administration SBP GREATER THAN 160 Sodium Chloride 1,000 mls @ 75 mls/hr 02/01/20 19:45 02/03/20 20:30 Normal Saline 0.9% IV 1,000 mls .[id number] ROOSEVELT Administration Cefepime HCl 1 gm/ Sodium 100 mls @ 200 mls/hr 02/01/20 21:00 02/04/20 08:58 Chloride IVPB 100 mls Q12HR ROOSEVELT Administration Metronidazole 500 mg/ Device 100 mls @ 100 mls/hr 02/03/20 05:00 02/04/20 04: 37 IVPB 100 mls 0500,1300,2100 ROOSEVELT Administration Insulin Human Lispro 0 units 02/01/20 19:39 02/03/20 11:48 Humalog SC 4 unit .MODERATE SLIDING SC PRN Administration Moderate Correctional Scale Latanoprost 0 drop 02/02/20 21:00 02/03/20 20:23 Xalatan 0.005% Ophth Soln EA EYE 1 drop HS ROOSEVELT Administration Pantoprazole Sodium 40 mg 02/01/20 21:00 02/04/20 09:00 Protonix IVP 40 mg Q12HR ROOSEVELT Administration Potassium Chloride 40 meq 02/03/20 08:00 02/04/20 08:47 K-Dur PO Not Given BID-WM ROOSEVELT Sodium Chloride 10 ml 02/03/20 14:13 02/03/20 20:22 Flush - Normal Saline IVF 10 ml PRN PRN Administration Saline Flush Timolol Maleate 1 drop 02/02/20 21:00 02/04/20 09:55 Timoptic 0.5% Ophth Soln L EYE 1 drop BID ROOSEVELT Administration - Exam General Appearance: NAD, awake alert Eye: PERRL, anicteric sclera ENT: normocephalic atraumatic, no oropharyngeal lesions Neck: supple, symmetric, no JVD, no thyromegaly Heart: RRR, no murmur, no gallops, no rubs Respiratory: CTAB, no wheezes, no rales, no ronchi, normal chest expansion Gastrointestinal: soft, non-tender, non-distended, normal bowel sounds Extremities: no cyanosis, no clubbing Skin: normal turgor, no lesions Neurological: cranial nerve grossly intact, no new deficit Musculoskeletal: normal tone, generalized weakness Psychiatric: normal affect, A&O x 3 Hosp A/P (1) Colitis presumed infectious Code(s): K52.9 - NONINFECTIVE GASTROENTERITIS AND COLITIS, UNSPECIFIED Status : Acute Plan: Continue current IV abx another 24h, start Florastor (2) Hypokalemia Code(s): E87.6 - HYPOKALEMIA Status: Chronic Plan: Improved with KCL supplementation (3) CKD (chronic kidney disease), stage IV Code(s): N18.4 - CHRONIC KIDNEY DISEASE, STAGE 4 (SEVERE) Status: Chronic Plan: Stable renal function, continue IVF's, avoid nephrotoxic meds and limit contrast (4) DM (diabetes mellitus) type II controlled, neurological manifestation Code(s): E11.49 - TYPE 2 DIABETES W OTH DIABETIC NEUROLOGICAL COMPLICATION Status: Chronic (5) Anemia in CKD (chronic kidney disease) Code(s): N18.9 - CHRONIC KIDNEY DISEASE, UNSPECIFIED; D63.1 - ANEMIA IN CHRONIC KIDNEY DISEASE Status: Chronic Plan: Stable currently, no active blood loss currently, s/p colonoscopy with bx pending - Plan continue antibiotics, social insurance adviser, DVT proph w/SCDs Stable currently Continue IVF's NS Continue Cefepime/Flagyl Enteric precautions d/c'd Continue Zithromax 500mg po daily for Campylobacter + ADA diet AM lab: BMP
[2020-02-04] MEDS: hydrALAZINE 20 MG/ML VIAL SLOW IVP PRN (14:07)
[2020-02-04] MEDS: Sodium Chloride 0.9% 1,000 ML IV SCH ×2 (14:47→20:49)
--- NOTE | 2020-02-04 16:20 | OP ---
DATE OF PROCEDURE: 02/04/2020 PROCEDURES PERFORMED: 1. Colonoscopy with snare polypectomy and biopsy. 2. Esophagogastroduodenoscopy with biopsy. PREMEDICATIONS: Given by Anesthesiology Department. PREPROCEDURE DIAGNOSES: 1. Abnormal CT with circumferential rectal wall thickening. 2. Abdominal pain and diarrhea. 3. Anemia with heme-positive stool. POSTPROCEDURE DIAGNOSES: 1. Very edematous cecum, ascending colon, and rectosigmoid colon with boggy and edematous mucosa along with superficial punctated aphthous ulcers and adherent inflammatory exudates, sparing transverse and descending colon. 2. Ascending colon polyp and descending colon polyp, status post polypectomy. 3. Four large polypoid lesions in gastric antrum in the prepyloric area, suggestive of hyperplastic gastric polyps. DESCRIPTION OF PROCEDURE: Written consent was obtained prior to procedure. Rectal exam performed was normal. The endoscope was advanced to the cecum. The quality of the bowel prep was suboptimal, but was able to visualize the entire mucosa. In the cecum and ascending colon, there was severe mucosal edema with very boggy appearance with punctated superficial ulcers. Biopsies were obtained. A 5-mm sessile polyp was noted in the ascending colon, that was removed with cold snare polypectomy and retrieved. The transverse colon and descending colon appeared normal with normal vascular pattern. In the distal descending colon, a small 3-mm sessile polyp was removed by snare, but not retrieved. In the rectosigmoid area, starting at 18 cm down to the rectum, diffuse mucosal edema and bogginess were again encountered with punctated aphthous ulcers. There was also small inflammatory exudates noted. Multiple biopsies in 3 different bottles were obtained. Retroflexion did not show any abnormality. There was no mass lesion encountered. The patient was then repositioned for upper endoscopy. The endoscope was advanced to the third portion of the duodenum. The duodenum appeared normal. The pylorus was patent. Four large polypoid lesion were seen. Biopsies were obtained. These have endoscopic appearance of large hyperplastic gastric polyps. The body, fundus, and cardia appeared normal. GE junction was noted at 42 cm and appeared normal. The entire esophagus appeared normal. The instrument was then fully removed. The patient tolerated procedure well. ASSESSMENT: 1. Diffuse edematous and boggy cecum, ascending colon, and rectosigmoid colon with punctated aphthous ulcers and small inflammatory exudates, status post multiple biopsies. The etiology is not known, but could be related to Campylobacter infection as suggested by his positive stool antigen test. 2. Large antral polyps, likely hyperplastic, which likely represent a large hyperplastic gastric polyps, otherwise normal upper endoscopy. RECOMMENDATIONS: 1. Await biopsy results. 2. Given prolonged clinical symptoms of cramps/pain and diarrhea, I would proceed with treating his Campylobacter with azithromycin, which has been ordered yesterday. Job ID: [id number]
[2020-02-04] MEDS: HumaLOG 300 UNITS/3 ML VIAL SC PRN (17:53)
[2020-02-04] MEDS: Azithromycin 250 MG TAB PO SCH (20:52)
[2020-02-04] MEDS: Atorvastatin Calcium 20 MG TAB PO SCH (20:52)
[2020-02-04] MEDS: Latanoprost 0.005% Ophth Soln 2.5 ml Bottle EA EYE SCH (20:52)
[2020-02-05] MEDS: HumaLOG 300 UNITS/3 ML VIAL SC PRN ×3 (00:09→13:06)
[2020-02-05] MEDS: metroNIDAZOLE 500 MG in Premix Bag 1 BAG IVPB SCH ×3 (04:05→21:59)
[2020-02-05 05:00] LABS: Anion Gap 9 mmol/L (10-20); BUN (Urea Nitrogen) 40 mg/dL (8.4-25.7); Calc. Creatinine Clearance 17 mL/min (70-130); Calcium 6.9 mg/dL (7.8-10.44); Carbon Dioxide 20 mmol/L (23-31); Chloride 115 mmol/L (98-107); Estimated GFR-MDRD 13; Glucose 158 mg/dL (80-115); Potassium 4.1 mmol/L (3.5-5.1); Sodium 140 mmol/L (136-145)
[2020-02-05] MEDS: Potassium Chloride 20 MEQ TAB PO SCH (08:26)
[2020-02-05] MEDS: Pantoprazole 40 MG VIAL IVP SCH ×2 (08:26→21:19)
[2020-02-05] MEDS: Ferrous Sulfate 325 MG TAB PO SCH ×2 (08:27→21:18)
[2020-02-05] MEDS: DULoxetine 30 MG CAP PO SCH (08:27)
[2020-02-05] MEDS: Carvedilol 6.25 MG TAB PO SCH ×2 (08:27→17:18)
[2020-02-05] MEDS: Calcitriol 0.25 MCG CAP PO SCH (08:27)
[2020-02-05] MEDS: Timolol 0.5% Ophth Soln 5 ml Bottle L EYE SCH ×2 (08:28→21:19)
[2020-02-05] MEDS: Dorzolamide HCl 2% Ophth Soln 10 ml Bottle EA EYE SCH ×3 (08:29→21:19)
[2020-02-05] MEDS: Cefepime 1 GM in Sodium Chloride 0.9% 100 ML IVPB SCH ×2 (08:38→21:18)
--- NOTE | 2020-02-05 09:44 | PDOC.HOSPP ---
- Subjective Encounter Date: 02/05/20 Encounter Time: 09:40 Subjective: f/u for colitis and + Campylobacter on current Zithromax/Cefepime/Flagyl. Overall feeling better this am. No diarrhea currently. - Objective Vital Signs & Weight: Vital Signs (12 hours) Temp Pulse Resp BP BP BP Pulse Ox 02/05/20 08:28 69 155/80 H 02/05/20 08:27 140/67 02/05/20 07:45 98.3 F 69 16 155/80 H 100 02/05/20 04:00 98.2 F 78 16 142/68 H 97 02/05/20 00:00 98.3 F 76 16 146/70 H 98 Weight Admit Weight 171 lb 9.6 oz Weight 175 lb 8 oz I&O: 02/04/20 02/05/20 02/06/20 06:59 06:59 06:59 Intake Total 2580 2633 Balance 2580 2633 Result Diagrams: 02/04/20 04:28 02/05/20 04:30 Additional Labs: Accuchecks 02/05/20 02/04/20 02/04/20 00:11 17:41 13:47 POC Glucose 276 H 215 H 163 H 02/04/20 11:05 POC Glucose 203 H Microbiology 02/02/20 23:42 Stool C. difficile GDH Antigen & Toxins - Final 02/01/20 18:10 Stool - Pending Stool Occult Blood (ANGELICA) - Final 02/01/20 11:10 Rectum - Formed Stool Lactoferrin - Final 02/01/20 11:10 Rectum - Formed Campylobacter Antigen Assay - Final 02/01/20 11:10 Rectum - Formed Shiga Toxin Test - Final 02/01/20 11:10 Rectum - Formed Stool Culture - Preliminary Laboratory Tests 02/01/20 02/01/20 02/01/20 13:50 13:50 21:25 WBC 12.1 H Hgb 9.5 L Neutrophils % 86.0 H Neutrophils % (Manual) Potassium 2.5 L* Carbon Dioxide BUN Creatinine Phosphorus COVID-19 PCR Not Detected 02/03/20 02/03/20 02/04/20 03:34 03:34 04:28 WBC Hgb Neutrophils % Neutrophils % (Manual) 72 Potassium Carbon Dioxide 21 L BUN 41 H Creatinine 4.78 H Phosphorus 3.9 COVID-19 PCR Hospitalist ROS - Medication Medications: Active Medications Generic Name Dose Route Start Last Admin Trade Name Freq PRN Reason Stop Dose Admin Atorvastatin Calcium 20 mg 02/01/20 21:00 02/04/20 20:52 Lipitor PO 20 mg HS ROOSEVELT Administration Azithromycin 500 mg 02/03/20 21:00 02/04/20 20:52 Zithromax PO 02/05/20 21:01 500 mg 2100 ROOSEVELT Administration Calcitriol 0.25 mcg 02/03/20 09:00 02/05/20 08:27 Rocaltrol PO 0.25 mcg DAILY ROOSEVELT Administration Carvedilol 6.25 mg 02/02/20 08:00 02/05/20 08:27 Coreg PO 6.25 mg BID-WM ROOSEVELT Administration Dorzolamide HCl 1 drop 02/02/20 21:00 02/05/20 08:29 Trusopt 2% Ophth Soln EA EYE 1 drop TID ROSOEVELT Administration Duloxetine HCl 30 mg 02/03/20 09:00 02/05/20 08:27 Cymbalta PO 30 mg DAILY ROOSEVELT Administration Ferrous Sulfate 325 mg 02/02/20 21:00 02/05/20 08:27 Feosol PO 325 mg BID ROOSEVELT Administration Hydralazine HCl 10 mg 02/01/20 19:56 02/04/20 14:07 Apresoline SLOW IVP 10 mg Q6H PRN Administration SBP GREATER THAN 160 Sodium Chloride 1,000 mls @ 75 mls/hr 02/01/20 19:45 02/04/20 20:49 Normal Saline 0.9% IV 1,000 mls .[id number] ROOSEVELT Administration Cefepime HCl 1 gm/ Sodium 100 mls @ 200 mls/hr 02/01/20 21:00 02/05/20 08:38 Chloride IVPB 100 mls Q12HR ROOSEVELT Administration Metronidazole 500 mg/ Device 100 mls @ 100 mls/hr 02/03/20 05:00 02/05/20 04: 05 IVPB 100 mls 0500,1300,2100 ROOSEVELT Administration Insulin Human Lispro 0 units 02/01/20 19:39 02/05/20 08:24 Humalog SC 2 unit .MODERATE SLIDING SC PRN Administration Moderate Correctional Scale Insulin Human Lispro 0 units 02/02/20 03:15 02/05/20 00:09 Humalog SC 3 unit .BEDTIME SLIDING SC PRN Administration Bedtime Correctional Scale Latanoprost 0 drop 02/02/20 21:00 02/04/20 20:52 Xalatan 0.005% Ophth Soln EA EYE 1 drop HS ROOSEVELT Administration Pantoprazole Sodium 40 mg 02/01/20 21:00 02/05/20 08:26 Protonix IVP 40 mg Q12HR ROOSEVELT Administration Potassium Chloride 40 meq 02/03/20 08:00 02/05/20 08:26 K-Dur PO 40 meq BID-WM ROOSEVELT Administration Sodium Chloride 10 ml 02/03/20 14:13 02/04/20 20:53 Flush - Normal Saline IVF 10 ml PRN PRN Administration Saline Flush Timolol Maleate 1 drop 02/02/20 21:00 02/05/20 08:28 Timoptic 0.5% Ophth Soln L EYE 1 drop BID ROOSEVELT Administration - Exam General Appearance: NAD, awake alert Eye: PERRL, anicteric sclera ENT: normocephalic atraumatic, no oropharyngeal lesions Neck: supple, symmetric, no JVD, no thyromegaly Heart: RRR, no murmur, no gallops, no rubs, normal peripheral pulses Heart - other findings: S1, S2 Respiratory: CTAB, no wheezes, no rales, no ronchi, normal chest expansion Gastrointestinal: soft, non-tender, non-distended, normal bowel sounds, no palpable masses Extremities: no cyanosis, no clubbing, no edema Skin: normal turgor, no lesions Neurological: cranial nerve grossly intact, no new deficit Musculoskeletal: normal tone, generalized weakness Psychiatric: normal affect, A&O x 3 Hosp A/P (1) Colitis presumed infectious Code(s): K52.9 - NONINFECTIVE GASTROENTERITIS AND COLITIS, UNSPECIFIED Status : Acute Plan: Likely Campylobacter etiology, continue Zithromax/Cefepime/Flagyl another 24h then de-escalate coverage (2) Hypokalemia Code(s): E87.6 - HYPOKALEMIA Status: Chronic Plan: Resolving, decrease KCL 40meq daily (3) CKD (chronic kidney disease), stage IV Code(s): N18.4 - CHRONIC KIDNEY DISEASE, STAGE 4 (SEVERE) Status: Chronic (4) DM (diabetes mellitus) type II controlled, neurological manifestation Code(s): E11.49 - TYPE 2 DIABETES W OTH DIABETIC NEUROLOGICAL COMPLICATION Status: Chronic (5) Anemia in CKD (chronic kidney disease) Code(s): N18.9 - CHRONIC KIDNEY DISEASE, UNSPECIFIED; D63.1 - ANEMIA IN CHRONIC KIDNEY DISEASE Status: Chronic - Plan continue antibiotics, family welfare social work professor, out of bed/ambulate, DVT proph w/SCDs Stable currently Continue IVF's NS Continue Cefepime/Flagyl another 24h then de-escalate Enteric precautions d/c'd Continue Zithromax 500mg po daily for Campylobacter + ADA diet AM lab: BMP, H/H Likely d/c in 24-48h
[2020-02-05 10:13] LABS: Routine O & P Final report (.)
[2020-02-05] MEDS: Sodium Chloride 0.9% 1,000 ML IV SCH (15:56)
[2020-02-05] MEDS: Azithromycin 250 MG TAB PO SCH (21:18)
[2020-02-05] MEDS: Atorvastatin Calcium 20 MG TAB PO SCH (21:19)
[2020-02-05] MEDS: Latanoprost 0.005% Ophth Soln 2.5 ml Bottle EA EYE SCH (21:20)
--- NOTE | 2020-02-05 21:59 | PRG ---
DATE OF SERVICE: 02/05/2020 SUBJECTIVE: Mr. Goode feels much better today. He had one semi-formed stool today. He had no blood in the stool known. He has had no abdominal pain. He has tolerated solid food all day today. OBJECTIVE: VITAL SIGNS: Temperature 98.4, blood pressure 183/98, and pulse 87. GENERAL: He is in no acute distress. Alert and oriented x3. LUNGS: Clear to auscultation bilaterally. HEART: Regular rate and rhythm without murmur. ABDOMEN: Soft, nontender, and nondistended. Bowel sounds are present. EXTREMITIES: No lower extremity edema. LABORATORY DATA: White blood cell count 9.5, hemoglobin 9.8, and platelets 302. Creatinine 4.7. IMPRESSION: 1. Campylobacter colitis. His Campylobacter stool antigen was positive. His symptoms were more abrupt onset with edema and ulceration found in the colon. He is being covered now with cefepime and metronidazole. He has symptomatically improved markedly. He is also on azithromycin. 2. The biopsies from his colon do show signs of chronic colitis in the rectum. The ascending colon just showed focal ulceration. I suspect this is actually an acute colitis rather than a true chronic colitis given the more acute presentation and rapid improvement in his symptoms. The colonoscopy, however, did show more involvement of the ascending colon and rectum with sparing in between, which could point more toward inflammatory bowel disease and against infectious colitis. Overall, I still would favor infectious colitis over chronic colitis at this time. Ultimately, I think that this determination will depend on what his symptoms do and if he has further evidence of ongoing chronic symptoms, then followup endoscopy to evaluate for resolution endoscopically or not. If he does ultimately have chronic colitis, then this will need to be treated accordingly. RECOMMENDATIONS: 1. Continue current diet, which he is tolerating well. 2. Complete a 3 to 5-day course of azithromycin. He can stop the other antibiotics. 3. If he has recurrent diarrhea or bleeding, then follow up with GI and consider repeat scope versus checking fecal calprotectin and initiating treatment potentially for ulcerative colitis with mesalamine versus immunosuppression. 4. I will sign off for now. Please call if GI can be of assistance. Job ID: [id number]
[2020-02-06] MEDS: HumaLOG 300 UNITS/3 ML VIAL SC PRN ×2 (00:52→06:33)
[2020-02-06 05:06] LABS: Hemoglobin 9.3 g/dL (14.0-18.0); Platelet Count 245 thou/uL (130-400)
[2020-02-06] MEDS: metroNIDAZOLE 500 MG in Premix Bag 1 BAG IVPB SCH (05:13)
[2020-02-06] MEDS: Sodium Chloride 0.9% 1,000 ML IV SCH (05:13)
[2020-02-06 05:24] LABS: Anion Gap 10 mmol/L (10-20); BUN (Urea Nitrogen) 38 mg/dL (8.4-25.7); Calc. Creatinine Clearance 18 mL/min (70-130); Calcium 7.3 mg/dL (7.8-10.44); Carbon Dioxide 17 mmol/L (23-31); Chloride 115 mmol/L (98-107); Estimated GFR-MDRD 13; Glucose 161 mg/dL (80-115); Potassium 4.3 mmol/L (3.5-5.1); Sodium 138 mmol/L (136-145)
[2020-02-06] MEDS: Ferrous Sulfate 325 MG TAB PO SCH (08:11)
[2020-02-06] MEDS: Calcitriol 0.25 MCG CAP PO SCH (08:11)
[2020-02-06] MEDS: Pantoprazole 40 MG VIAL IVP SCH (08:11)
[2020-02-06] MEDS: Carvedilol 6.25 MG TAB PO SCH (08:11)
[2020-02-06] MEDS: Dorzolamide HCl 2% Ophth Soln 10 ml Bottle EA EYE SCH (08:12)
[2020-02-06] MEDS: DULoxetine 30 MG CAP PO SCH (08:12)
[2020-02-06] MEDS: Timolol 0.5% Ophth Soln 5 ml Bottle L EYE SCH (08:13)
[2020-02-06 08:21] VITALS: BP 172/81; TEMP 97.5
[2020-02-06] MEDS ORDERED: Potassium Chloride 20 MEQ TAB PO SCH (09:00)
--- NOTE | 2020-02-06 12:38 | DIS ---
DATE OF ADMISSION: 02/01/2020 DATE OF DISCHARGE: 02/06/2020 DISCHARGE DIAGNOSES: 1. Acute colitis secondary to Campylobacter. 2. Hypokalemia, resolved. 3. Acute kidney injury on chronic kidney disease, stage 4. 4. Diabetes, type 2. 5. Anemia in chronic kidney disease. 6. Hypertension. CONSULTATIONS: Dr. Pak, Dr. Ruth, and Dr. Rolon with GI Service. PERTINENT LABORATORY AND X-RAY FINDINGS: Potassium ranged between 2.5 to 4.3. Creatinine ranged between 4.65 to 5.68. Estimated GFR ranged between 10 to 13. Lactic acid level 1.3. Iron level ranged between 45 to 62, phosphorus 3.9, magnesium 1.9, ferritin ranged between 410 to 413, albumin 2.1, lipase 24. CBC showed a white blood cell count ranged between 9.5 to 12.1, hemoglobin ranged between 9.3 to 9.8. COVID-19 PCR negative on 02/01/2020. Stool culture dated 02/01/2020, showed normal enteric kolton. No Salmonella, Shigella or E coli on 0157 isolated. Campylobacter antigen positive on 02/01/2020. Stool Hemoccult dated 02/01/2020 positive x1. C difficile antigen and toxin not performed on 02/02/2020, due to formed stool. CT of the abdomen and pelvis dated 02/01/2020, showed abnormal wall thickening of the rectum. Bilateral renal ultrasound dated 02/02/2020, showed no hydronephrosis. EGD and colonoscopy dated 02/04/2020, showed edematous cecum, ascending colon, and rectosigmoid colon with edematous mucosa, and superficial aphthous ulcers. Polyps noted in the ascending and descending colon. Gastric antral polyps noted. HOSPITAL COURSE: The patient was initially admitted after presenting with profound and protracted diarrhea with associated severe hypokalemia. The patient underwent general evaluation including stool sampling showing evidence of Campylobacter antigen. The patient was placed on IV cefepime, metronidazole, and Zithromax after the Campylobacter was isolated. The patient received aggressive IV fluid hydration and monitored for clinical response. The patient was evaluated by the GI Service, undergoing EGD and colonoscopy showing evidence of acute colitis with several polyps biopsied. The patient continued on antibiotic therapy through the remainder of the hospital course with overall resolution of the diarrhea. The patient received potassium supplementation with overall correction of potassium levels by the time of discharge. The patient was able to transition to regular oral intake and remained stable through the remainder of the hospital course. I have examined the patient at the time of discharge and discussed followup instructions. The patient verbalized understanding and agreement and ready for discharge on 02/06/2020. DISCHARGE MEDICATIONS: 1. Aspirin 81 mg p.o. daily. 2. Lipitor 40 mg p.o. daily. 3. Rocaltrol 0.25 mcg p.o. daily. 4. Coreg 3.125 mg p.o. b.i.d.. 5. Vitamin B12 1000 mcg intramuscularly q.28 days. 6. Dorzolamide 2% one drop to each eye t.i.d. 7. Cymbalta 30 mg p.o. daily. 8. Ferrous sulfate 325 mg p.o. b.i.d. 9. Hydrocortisone 1 application topically b.i.d. p.r.n. 10. Isosorbide mononitrate 30 mg p.o. daily. 11. Latanoprost 0.005% drops to each eye at bedtime. 12. Omeprazole 20 mg p.o. daily. 13. Renvela 1600 mg p.o. t.i.d. with meals. 14. Timolol maleate one drop to the left eye b.i.d. 15. Zithromax 250 mg p.o. daily x5 days. FOLLOWUP: The patient may follow up with the [facility]. CONDITION ON DISCHARGE: Fair. ACTIVITY: Ad-danny. DIET: Heart healthy and ADA. CODE STATUS: Full. DISPOSITION: [place] [facility] on 02/06/2020. TIME SPENT: Total time preparing and coordinating discharge, 35 minutes. Job ID: [id number]
== END 2020-02-06 11:04 | disposition home or self-care (01) | DRG 372 ==
LOC: ERS 13:27 → 2SW 21:35 → 2NO 02-02 21:34 → ONC 02-03 18:31
PROVIDERS: ADMIT Internal Medicine; ATTEND Family Medicine
PROC: 0DB78ZX Excision of Stomach, Pylorus, Via Natural or Artificial Opening Endoscopic, Diagnostic (ICD-10-PCS; principal; 2020-02-04)
PROC: 0DBK8ZZ Excision of Ascending Colon, Via Natural or Artificial Opening Endoscopic (ICD-10-PCS; 2020-02-04)
PROC: 0DBP8ZZ Excision of Rectum, Via Natural or Artificial Opening Endoscopic (ICD-10-PCS; 2020-02-04)
PROC: 0DBM8ZZ Excision of Descending Colon, Via Natural or Artificial Opening Endoscopic (ICD-10-PCS; 2020-02-04)
DX: A04.5 Campylobacter enteritis (principal); N18.4 Chronic kidney disease, stage 4 (severe); E44.0 Moderate protein-calorie malnutrition; N17.9 Acute kidney failure, unspecified; K63.3 Ulcer of intestine; Z20.828 Contact with and (suspected) exposure to other viral communicable diseases; E78.5 Hyperlipidemia, unspecified; H40.9 Unspecified glaucoma; E11.22 Type 2 diabetes mellitus with diabetic chronic kidney disease; I12.9 Hypertensive chronic kidney disease with stage 1 through stage 4 chronic kidney disease, or unspecified chronic kidney disease; D12.2 Benign neoplasm of ascending colon; D12.4 Benign neoplasm of descending colon; E87.6 Hypokalemia; D63.1 Anemia in chronic kidney disease; I25.2 Old myocardial infarction; Z79.82 Long term (current) use of aspirin; Z79.899 Other long term (current) drug therapy; Z68.26 Body mass index [BMI] 26.0-26.9, adult
CPT/HCPCS: 36415; 36416; 74176; 76770; 80048; 80053; 82274; 82550; 82728; 83540; 83550; 83605; 83630; 83690; 83735; 84100; 85007; 85014; 85018; 85025; 85027; 85049; 85610; 85730; 87045; 87046; 87177; 87324; 87427; 87449; 87635; 88305; 88312; 93005; 96365; 96366; 96375; C9113; J0360; J0692; J2001; J2405; J2704; J3480; J3490; J7050; U0003